=== PATIENT | male | born 1980 | race African-American/Black ===

== ENCOUNTER 2021-07-16 00:17 | Emergency (ER) | payer MEDICARE, MEDICAID ==
[~2021-07-16] VITALS: Ht 172.7 cm; Wt 120.2 kg
[2021-07-16] MEDS ORDERED: KETOROLAC 60MG/2ML VIAL IM ONE (00:30)
[2021-07-16] MEDS ORDERED: KETOROLAC 60MG/2ML VIAL IM SCH (02:15)
[2021-07-16 03:53] VITALS: BP 125/87
== END 2021-07-16 03:56 | disposition home or self-care (01) ==
LOC: ER 00:17
DX: M25.561 Pain in right knee (principal)
CPT/HCPCS: 73562; 96372; 99283; J1885